=== PATIENT | female | born 1995 | race Caucasian/White ===

== ENCOUNTER 2019-04-20 06:38 | Inpatient (IN) ==
[2019-04-20] MEDS ORDERED: PITOCIN IVP ONE (06:52)
[2019-04-20] MEDS ORDERED: NUBAIN INJ 200 MG VIAL MULTIDOSE IVP PRN (06:52)
[2019-04-20] MEDS ORDERED: D5LR 1L W PITOCIN 10 UNITS/L 10 UNITS/1,000 ML BAG IV PRN (06:52)
[2019-04-20] MEDS ORDERED: NS 100 ML IV 100 ML ONE ×3 (06:57→15:05)
[2019-04-20] MEDS ORDERED: LR 1000 ML IV 1,000 ML ONE ×2 (06:57→11:11)
[2019-04-20] MEDS ORDERED: AMPICILLIN VIAL 2 GRAM ONE (06:58)
[2019-04-20] MEDS ORDERED: D5 1/2 NS 1L W PITOCIN 20 UNITS/L 20 UNITS/1,000 ML BAG IV ONE (06:58)
[2019-04-20] MEDS ORDERED: AMPICILLIN VIAL 2 GRAM 2 G in NS 100 ML IV + SPIKE MINIBAG* 100 ML IV SCH (07:00)
[2019-04-20] MEDS ORDERED: D5 1/2 NS 1000 ML 1,000 ML IV SCH (07:00)
[2019-04-20 07:22] LABS: BASOPHILS % (AUTO) 0.3 % (0.2-1.0); EOSINOPHILS % (AUTO) 0.5 % (0.9-2.9); HEMATOCRIT 37.1 % (36.0-47.0); HEMOGLOBIN 12.9 g/dL (12.0-16.0); LYMPHOCYTES # (AUTO) 2.1 X10^3/uL (1.3-2.9); LYMPHOCYTES % (AUTO) 21.8 % (21.0-51.0); MEAN CORPUSCULAR HEMOGLOBIN 29.7 pg (27.0-34.0); MEAN CORPUSCULAR HGB CONC 34.8 g/dL (33.0-35.0); MEAN CORPUSCULAR VOLUME 85.4 fL (80.0-100.0); MEAN PLATELET VOLUME 8.9 fL (7.4-11.0); MONOCYTES # (AUTO) 0.6 x10^3/uL (0.3-0.8); MONOCYTES % (AUTO) 6.5 % (0.0-13.0); NEUTROPHILS % (AUTO) 70.9 % (42.0-75.0); PLATELET COUNT 214 X10^3/uL (150.0-450.0); RED BLOOD COUNT 4.35 X10^6/uL (3.5-5.4); RED CELL DISTRIBUTION WIDTH 13.1 % (11.6-16.5); WHITE BLOOD COUNT 9.8 X10^3/uL (3.6-10.0)
[2019-04-20 07:24] LABS: BLOOD UREA NITROGEN 6 mg/dL (7-18); CARBON DIOXIDE 22.5 mmol/L (21-32); CHLORIDE 105 mmol/L (98-107); CREATININE 0.65 mg/dL (0.55-1.02); SODIUM 138 mmol/L (136-145); eGFR NON BLACK RACES > 60 (>60)
[2019-04-20 08:29] LABS: BILIRUBIN,URINE NEGATIVE (NEGATIVE); BLOOD/HEMOGLOBIN,URINE NEGATIVE (NEGATIVE); GLUCOSE, URINE NEGATIVE (NEGATIVE); KETONES,URINE NEGATIVE (NEGATIVE); LEUKOCYTE ESTERASE ,URINE 1+ (NEGATIVE); NITRITES,URINE NEGATIVE (NEGATIVE); PROTEIN,URINE 1+ (NEGATIVE); UROBILINOGEN,URINE 1+ (NORMAL)
[2019-04-20 08:32] LABS: APPEARANCE,URINE SLIGHTLY HAZY (CLEAR); COLOR,URINE DARK YELLOW (YELLOW)
[2019-04-20 08:35] LABS: BACTERIA,URINE TRACE /HPF (NEGATIVE); MUCUS,URINE MODERATE /HPF (NEGATIVE); RBC,URINE 0-2 /HPF (NONE SEEN); SQUAMOUS EPITHELIAL CELL,UR MANY /HPF (NEGATIVE)
[2019-04-20] MEDS ORDERED: NUBAIN INJ 10 ONE (10:29)
[2019-04-20] MEDS ORDERED: AMPICILLIN VIAL 1 GRAM ONE ×2 (10:56→15:06)
[2019-04-20] MEDS: AMPICILLIN VIAL 1 GRAM 1 G in NS 50 ML IV + SPIKE MINIBAG* 50 ML IV SCH ×3 (11:02→15:06)
[2019-04-20] MEDS ORDERED: FENTANYL INJ 100 mcg ONE (11:12)
[2019-04-20] MEDS ORDERED: NAROPIN EPIDURAL 0.2% + FENTANYL 90MCG 60 ML EPI ONE (11:12)
[2019-04-20] MEDS ORDERED: PHENERGAN INJ 25 MG IM PRN (19:11)
[2019-04-20] MEDS ORDERED: AMBIEN PO PRN (19:59)
[2019-04-20] MEDS ORDERED: MILK OF MAGNESIA PO PRN (19:59)
[2019-04-20] MEDS ORDERED: D5 1/2 NS 1000 ML 1,000 ML with PITOCIN 20 UNITS IV SCH ×2 (20:00)
[2019-04-20] MEDS: DERMOPLAST SPRAY TOP PRN (21:00)
[2019-04-20] MEDS: ZANTAC PO SCH (21:50)
[2019-04-20] MEDS: MOTRIN TAB 800 MG PO PRN (23:51)
[2019-04-21 05:28] LABS: HEMATOCRIT 33.7 % (36.0-47.0); HEMOGLOBIN 11.5 g/dL (12.0-16.0)
[2019-04-21] MEDS: PRENATAL PLUS PO SCH (08:58)
[2019-04-21] MEDS: ZANTAC PO SCH ×2 (08:58→20:27)
[2019-04-21] MEDS: MOTRIN TAB 800 MG PO PRN ×2 (08:59→20:37)
[2019-04-22] MEDS: PRENATAL PLUS PO SCH (09:22)
[2019-04-22] MEDS: ZANTAC PO SCH (09:22)
[2019-04-22] MEDS: MOTRIN TAB 800 MG PO PRN (09:26)
[2019-04-22 09:58] VITALS: BP 119/71
[2019-04-22] MEDS: DERMOPLAST SPRAY TOP PRN (10:15)
== END 2019-04-22 10:50 | disposition home or self-care (01) | DRG 807 ==
LOC: LD 06:38 → MED/SURG 19:59
PROVIDERS: ADMIT Obstetrics & Gynecology Obstetrics; ATTEND Obstetrics & Gynecology Obstetrics
DX: Z37.0 Single live birth; O41.03X0 Oligohydramnios, third trimester, not applicable or unspecified; O99.820 Streptococcus B carrier state complicating pregnancy; B95.1 Streptococcus, group B, as the cause of diseases classified elsewhere; Z3A.38 38 weeks gestation of pregnancy
CPT/HCPCS: 36415; 59409; 80048; 81001; 85014; 85018; 85025; 86592; 86850; 86900; 86901; A4222; S0197; J0290; J2300; J2590; J3010; J7050; J7120; S5010